=== PATIENT | male | born 1960 | race Caucasian/White ===

== ENCOUNTER 2021-12-30 14:09 | Emergency (ER) | payer BC ==
[2021-12-30] MEDS ORDERED: TETANUS/DIPHTHERIA/PERTUSSIS 0.5 ML SYRINGE IM ONE (14:23)
[2021-12-30] MEDS ORDERED: BACITRACIN ZINC OINT 1 PACKET TOP STA (14:24)
--- NOTE | 2021-12-30 14:27 | ED Physician Documentation ---
History of Present Illness - Stated complaint Stated Complaint: LAC LT POINTER FINGER - Additonal information Additional information: 61-year-old [id number] male presents the emergency department for evaluation of a laceration to his left index finger sustained when using hedge tremors to cut branches off the [place] tree. He has a macerated laceration on the radial side of the finger extending to the palmar surface. He endorses that the distal mid and tip of the finger are numb. He has preserved flexion extension at all joints against resistance. Uncertain last tetanus Review of Systems Constitutional: denies: Fever, Chills Cardiac: reports: Reviewed and negative Respiratory: reports: Reviewed and negative Skin: reports: Laceration (s) PD PAST MEDICAL HISTORY - Allergies Allergies/Adverse Reactions: Allergies Allergy/AdvReac Type Severity Reaction Status Date / Time No Known Drug Allergies Allergy Verified 12/30/21 14:30 PD ED PE EXPANDED - Extremities Extremities: Left finger(s) (maccerated laceration left proximal radial side index finger. distal sensation is lost. normal flexion/extension against resistance at MCP, PIP/DIP. ) Results - Vitals Vitals: Vital Signs - 24 hr 12/30/21 14:27 Temperature 36.7 C Heart Rate 86 Respiratory 20 Rate Blood Pressure 153/33 H O2 Saturation 100 Oxygen O2 Source Room air Procedures - Laceration (location) left index Length in cm: 3.5 Wound type: Into subcut fat, Clean Neurovascular status: Other (Loss of sensation distal to the laceration) Tendon involvement: Tendon intact Anesthesia: Lidocaine 1% Wound preparation: Chlorhexadine, Irrigated copiously NS, debridement of wound edges (traumatic laceration/avulsion), Multiple flaps aligned, Limited undermining Skin layer closure: Interrupted, Sutures - enter # (9) Other: Patient tolerated well, No complications, Tetanus booster given PD MEDICAL DECISION MAKING - ED course Complexity details: considered differential, d/w patient ED course: 61-year-old male presents emergency department for evaluation of a macerated left index finger laceration sustained when using a reese at home this morning. Tetanus was updated today. Macerated wound required some revision and approximation of wound edges. He has preserved tendon function though distal sensation is lost indicating nerve injury. Patient was placed in extension splint. Courage close follow-up with primary care provider. Emergent return precautions were discussed for concerns of infection. Departure - Departure Disposition: 01 Home, Self Care Clinical Impression: Peripheral nerve injury Laceration of index finger Qualifiers: Encounter type: initial encounter Damage to nail status: without damage Foreign body presence: without foreign body Laterality: left Qualified Code(s): S61.211A - Laceration without foreign body of left index finger without damage to nail, initial encounter Condition: Stable Record reviewed to determine appropriate education?: Yes Instructions: ED Laceration Hand Comments: Your suture(s) should be removed in 10-14 days. In 24 hours you may remove the dressing wash gently with warm soap and water, apply any antibiotic ointment and a simple bandage. Your tetanus was updated today and is good for the next 7 to 10 years. While this wound is healing I would like you to wear the extension splint to prevent movement of the finger and limit the disruption of the tissue as it heals. Please attempt to keep your wound clean and dry. Do not submerge it in dirty dishwater or bath water. Your finger is numb distal to the laceration and I suspect that you have peripheral nerve damage. Clinically there is little that the emergency department can do to repair this. It is possible that it will come back over the next 3 to 6 months. However as we discussed at the bedside there is no findings to suggest tendon injury which is important when we talk about finger function Return to the emergency department if you have any concerns of infection such as redness, fevers milky drainage increased pain.
[2021-12-30 14:30] VITALS: BP 153/33
== END 2021-12-30 15:12 | disposition home or self-care (01) ==
LOC: ED 14:09
DX: S61.211A Laceration without foreign body of left index finger without damage to nail, initial encounter (principal); W27.8XXA Contact with other nonpowered hand tool, initial encounter; Z23 Encounter for immunization; Z71.85 Encounter for immunization safety counseling
CPT/HCPCS: 12002; 90471; 90715; 99283; A9270